=== PATIENT | female | born 1990 | race African-American/Black ===

== ENCOUNTER 2016-10-13 16:30 | Emergency (ER) | payer MEDICAID, OTHER ==
[~2016-10-13] VITALS: Ht 162.6 cm; Wt 56.7 kg
[~2016-10-13 16:30] MED LIST: CIPROFLOXACIN500 M2 ORAL; KEFLEX500 MG ORAL; METRONIDAZOLE500 MG ORAL; NAPROSYN500 M1 ORAL; NKM
[2016-10-13] MEDS ORDERED: Tylenol #3 tab (300mg/30mg) ORAL ONE (17:00)
[2016-10-13 17:18] VITALS: BP 114/52
[2016-10-13] MEDS ORDERED: IBUPROFEN600 MG ORAL (18:21)
[2016-10-13] MEDS ORDERED: ACETAMINOPHEN-1 EAC1 ORAL (18:21)
[2016-10-13 18:42] VITALS: BP 114/52
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
--- NOTE | 2016-10-14 10:27 | Diagnostic Imaging Report ---
Indication: Facial trauma and pain Technique: Continuous helical transaxial imaging of the maxillofacial structures obtained without intravenous contrast administration. Coronal 2-D reformats were also obtained. Study obtained in a Siemens sensation [address] Total Dose length Product (DLP): [address] Dose Index Volume (CTDIvol): 28 mGy Comparison: None Findings: There is no evidence of an acute fracture. Paranasal sinuses and mastoids are clear. Soft tissues are unremarkable. 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 Impression: No acute injury identified. 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 This may have implications in terms of the stability of this level. Suggest nonemergent referral to a program management specialist. The CT scanner at [facility] is accredited by the [employer] and the scans are performed using dose optimization techniques as appropriate to a performed exam including Automatic Exposure control.
== END 2016-10-13 18:35 | disposition home or self-care (01) ==
LOC: EMR 17:08
DX: S00.83XA Contusion of other part of head, initial encounter (principal); Y04.2XXA Assault by strike against or bumped into by another person, initial encounter; Y92.89 Other specified places as the place of occurrence of the external cause
CPT/HCPCS: 70486; 99284

== ENCOUNTER 2016-11-14 06:12 | Emergency (ER) | payer MEDICAID, OTHER ==
[~2016-11-14] VITALS: Ht 162.6 cm; Wt 59.0 kg
[~2016-11-14 06:12] MED LIST changes: +ACETAMINOPHEN-1 EAC1 ORAL; +IBUPROFEN600 MG ORAL
--- NOTE | 2016-11-14 06:33 | Emergency Room Report ---
History of Present Illness General Chief Complaint: Abdominal Pain Source: Patient Present Illness HPI Patient present with complaints of nausea vomiting and diarrhea Patient had gone to bed last night in the middle of the night woke up with hot sweats Had diffuse abdominal pain which was followed by diarrhea Denies any blood in the vomit or diarrhea Denies any chest pain or shortness of breath Abdominal pain is cramping /10 diffuse Patient does not recall eating any were suspicious Denies any recent travel Allergies: Coded Allergies: NO KNOWN ALLERGIES (Unverified Allergy, Unknown, 03/20/15) Patient History Past Medical History: see triage record Pertinent Family History: none Last Menstrual Period: OCT 19 Now: No Reviewed Nursing Documentation: PMH: Agreed, PSxH: Agreed Nursing Documentation-PMH Past Medical History: No Stated History Review of Systems All Other Systems: negative except mentioned in HPI Physical Exam Vital Signs Date Time Temp Pulse Resp B/P (MAP) Pulse Ox O2 Delivery O2 Flow Rate FiO2 11/14/16 06:14 97.9 76 18 122/75 98 Room Air Sp02 EP Interpretation: reviewed, normal General Appearance: mild distress - actively nauseated Head: normocephalic, atraumatic Eyes: bilateral eye PERRL, bilateral eye EOMI ENT: hearing grossly normal, normal pharynx, TMs + canals normal, uvula midline Neck: full range of motion, supple, no meningismus, no bony tend Respiratory: lungs clear, normal breath sounds, no rhonchi, no respiratory distress, no retraction, no accessory muscle use Cardiovascular #1: normal peripheral pulses, regular rate, rhythm, no edema, no gallop, no JVD, no murmur Gastrointestinal: normal bowel sounds, non tender - However subjectively uncomfortable diffusely, soft, no mass, no organomegaly, non-distended, no guarding, no hernia, no pulsatile mass, no rebound Genitourinary: no CVA tenderness Neurologic: oriented x3, responsive, brim flexer III-XII nml as tested, motor strength/ tone normal, sensory intact Psychiatric: mood/affect normal Skin: normal color, no rash, warm/dry, palpation normal Lymphatic: normal inspection, no adenopathy Medical Decision Making Diagnostic Impression: Primary Impression: Vomiting Additional Impressions: Abdominal pain Diarrhea ER Course With the patient's history and examination, multiple differentials considered, including but not limited to , ectopic , ovarian torsion, gastritis, cholecystitis, pancreatitis, appendicitis Patient's white blood for count was very minimally elevated From her discomfort CAT scan imaging was obtained the appendix itself was not visualized however no secondary signs of appendicitis clinically the patient has felt significantly better no signs of any rebound effect on evaluation Given the vomiting and diarrhea possible infectious pathology is entertained and the patient is stable for close outpatient follow Labs Test 11/14/16 06:12 White Blood Count 12.8 K/UL (4.8-10.8) Red Blood Count 4.76 M/UL (4.20-5.40) Hemoglobin 13.7 G/DL (12.0-16.0) Hematocrit 42.7 % (37.0-47.0) Mean Corpuscular Volume 90 FL (80-99) Mean Corpuscular Hemoglobin 28.8 PG (27.0-31.0) Mean Corpuscular Hemoglobin Concent 32.0 G/DL (32.0-36.0) Red Cell Distribution Width 13.8 % (11.6-14.8) Platelet Count 258 K/UL (150-450) Mean Platelet Volume 6.6 FL (6.5-10.1) Neutrophils (%) (Auto) 72.6 % (45.0-75.0) Lymphocytes (%) (Auto) 17.8 % (20.0-45.0) Monocytes (%) (Auto) 7.3 % (1.0-10.0) Eosinophils (%) (Auto) 1.1 % (0.0-3.0) Basophils (%) (Auto) 1.2 % (0.0-2.0) Urine Color Red Urine Appearance Cloudy Urine pH 5 (4.5-8.0) Urine Specific [place] 1.025 (1.005-1.035) Urine Protein 2+ (NEGATIVE) Urine Glucose (UA) Negative (NEGATIVE) Urine Ketones Negative (NEGATIVE) Urine Occult Blood 5+ (NEGATIVE) Urine Nitrite Negative (NEGATIVE) Urine Bilirubin Negative (NEGATIVE) Urine Urobilinogen 1 MG/DL (0.0-1.0) Urine Leukocyte Esterase 1+ (NEGATIVE) Urine RBC Tntc /HPF (0 - 2) Urine WBC 5-10 /HPF (0 - 2) Urine Squamous Epithelial Cells Few /LPF (NONE/OCC) Urine Bacteria Few /HPF (NONE) Urine HCG, Qualitative Negative Sodium Level 140 mEQ/L (135-145) Potassium Level 4.0 mEQ/L (3.4-4.9) Chloride Level 100 mEQ/L (98-107) Carbon Dioxide Level 27 mEQ/L (20-30) Anion Gap 13 (5-15) Blood Urea Nitrogen 15 mg/dL (7-23) Creatinine 1.0 mg/dL (0.5-0.9) Estimat Glomerular Filtration Rate > 60 mL/min (>60) Glucose Level 103 mg/dL (74-106) Calcium Level 9.3 mg/dL (8.6-10.2) Total Bilirubin 0.4 mg/dL (0.0-1.2) Aspartate Amino Transf (AST/SGOT) 15 U/L (5-40) Alanine Aminotransferase (ALT/SGPT) 7 U/L (3-33) Alkaline Phosphatase 42 U/L (35-104) Total Protein 7.3 g/dL (6.6-8.7) Albumin 4.5 g/dL (3.5-5.2) Globulin 2.8 g/dL Albumin/Globulin Ratio 1.6 (1.0-2.7) Lipase 30 U/L (< 60) CT/MRI/US Diagnostic Results CT/MRI/US Diagnostic Results : Impression CT abdomen pelvis:Impression: Small amount of free fluid in the pelvis. Tiny low-density lesion in the right lobe of liver unchanged, likely a tiny cyst. 10 is not identified. Otherwise negative. Last Vital Signs Date Time Temp Pulse Resp B/P (MAP) Pulse Ox O2 Delivery O2 Flow Rate FiO2 11/14/16 06:14 97.9 76 18 122/75 98 Room Air Status: improved Disposition: HOME, SELF-CARE Condition: Improved Scripts Famotidine (PEPCID) 20 Mg Tablet 20 MG ORAL DAILY, #7 TAB 0 Refills Prov: KP KUMAR D.O. 11/14/16 Ondansetron Odt* (ZOFRAN ODT*) 4 Mg Tab.rapdis 4 MG ORAL Q6H Y for Nausea & Vomiting, #10 TAB 0 Refills Prov: PK KUMAROLandon 11/14/16 Additional Instructions: Patient is provided with the discharge instructions notified to follow up with primary doctor in the next 2-3 days otherwise return to the er with any worsening symptoms. Please note that this report is being documented using DRAG[employer] technology. This can lead to erroneous entry secondary to incorrect interpretation by the dictating instrument. KP KUMAR D.O. Nov 14, 2016 06:33
[2016-11-14] MEDS ORDERED: Tubing IV Cassette IV ONE (06:43)
[2016-11-14] MEDS ORDERED: Morphine Sulfate 4mg/ml Inj IVP ONE (06:45)
[2016-11-14] MEDS ORDERED: Metoclopramide 10mg/2ml Inj IVP ONE (06:45)
[2016-11-14] MEDS ORDERED: DiphenhydrAMINE 50mg/ml Inj IVP ONE (06:45)
[2016-11-14 07:05] VITALS: BP 114/74
[2016-11-14 07:14] LABS: BASOPHILS % (AUTO) 1.2 % (0.0-2.0); EOSINOPHILS % (AUTO) 1.1 % (0.0-3.0); LYMPHOCYTES % (AUTO) 17.8 % (20.0-45.0); MEAN CORPUSCULAR HEMOGLOBIN 28.8 PG (27.0-31.0); MEAN CORPUSCULAR VOLUME 90 FL (80-99); MEAN PLATELET VOLUME 6.6 FL (6.5-10.1); MONOCYTES % (AUTO) 7.3 % (1.0-10.0); NEUTROPHILS % (AUTO) 72.6 % (45.0-75.0); PLATELET COUNT 258 K/UL (150-450); RED BLOOD COUNT 4.76 M/UL (4.20-5.40); RED CELL DISTRIBUTION WIDTH 13.8 % (11.6-14.8); WHITE BLOOD COUNT 12.8 K/UL (4.8-10.8)
[2016-11-14 07:22] LABS: APPEARANCE,URINE CLOUDY; KETONES,URINE NEGATIVE (NEGATIVE); LEUKOCYTE ESTERASE ,URINE 1+ (NEGATIVE); NITRITE,URINE NEGATIVE (NEGATIVE); PH,URINE 5 (4.5-8.0); PROTEIN,URINE 2+ (NEGATIVE); UROBILINOGEN,URINE 1 MG/DL (0.0-1.0)
[2016-11-14 07:24] LABS: BACTERIA,URINE FEW /HPF; RBC,URINE TNTC /HPF (0 - 2); SQUAMOUS EPITHELIAL CELL,UR FEW /LPF (NONE/OCC)
[2016-11-14 07:37] LABS: ALANINE AMINOTRANSFERASE 7 U/L (3-33); ALBUMIN/GLOBULIN RATIO 1.6 (1.0-2.7); ANION GAP 13 (5-15); ASPARTATE AMINO TRANSFERASE 15 U/L (5-40); CALCIUM 9.3 mg/dL (8.6-10.2); CARBON DIOXIDE 27 mEQ/L (20-30); CHLORIDE 100 mEQ/L (98-107); GLOMERULAR FILTRATION RATE > 60 mL/min (>60); HEMOLYSIS 2; LIPASE 30 U/L (< 60); SODIUM 140 mEQ/L (135-145); TOTAL PROTEIN 7.3 g/dL (6.6-8.7)
[2016-11-14 09:00] VITALS: BP 108/68
[2016-11-14] MEDS ORDERED: PEPCID20 MG ORAL (09:48)
[2016-11-14] MEDS ORDERED: ZOFRAN ODT4 MG ORAL (09:48)
[2016-11-14 10:00] VITALS: BP 108/68
--- NOTE | 2016-11-14 11:40 | Diagnostic Imaging Report ---
Indication: Abdominal pain Technique: CT scan of the abdomen and pelvis was performed from the diaphragms to the symphysis pubis with intravenous contrast material only per specific request of the ordering physician.. 5 mm sections were generated. Axial, coronal, and sagittal images are presented. Dose: Total Dose Length Product - DLP [address] Dose Index - CTDIvol(s) 13.24 mGy. Comparison: 11/26/2013 Findings: There is a tiny low-density lesion in the right lobe of the liver measuring 5 mm, unchanged. The liver is otherwise normal. The gallbladder is unremarkable. The spleen is normal. Pancreas is normal. Adrenal glands are unremarkable. The kidneys are normal. Aorta and inferior vena cava are normal caliber. Retroperitoneum is free of adenopathy. The appendix is not visualized. There is some free fluid in the pelvis. The uterus and ovaries are unremarkable. Bladder is normal. Impression: Small amount of free fluid in the pelvis. Tiny low-density lesion in the right lobe of liver unchanged, likely a tiny cyst. 10 is not identified. Otherwise negative. The CT scanner at [facility] is accredited by the [employer] and the scans are performed using protocols designed to limit radiation exposure to as low as reasonably achievable to attain images of sufficient resolution adequate for diagnostic evaluation.
== END 2016-11-14 10:00 | disposition home or self-care (01) ==
LOC: EMR 07:05
DX: R11.10 Vomiting, unspecified (principal); R10.9 Unspecified abdominal pain; R19.7 Diarrhea, unspecified
CPT/HCPCS: 36415; 74177; 80053; 81003; 81025; 83690; 85025; 96361; 96374; 96375; 99284; J1200; J2270; J2765; Q9967

== ENCOUNTER 2017-03-12 10:39 | Emergency (ER) | payer MEDICAID ==
[~2017-03-12] VITALS: Ht 162.6 cm; Wt 59.0 kg
[~2017-03-12 10:39] MED LIST changes: +PEPCID20 MG ORAL; +UNOBMED; +ZOFRAN ODT4 MG ORAL
[2017-03-12] MEDS ORDERED: LR 1000ml 1,000 ML IV STA ×2 (10:42→13:52)
[2017-03-12] MEDS ORDERED: Metoclopramide 10mg/2ml Inj IVP ONE (10:45)
[2017-03-12] MEDS ORDERED: LORazepam Inj 2mg/ml 1ml IV ONE (11:00)
[2017-03-12 11:11] VITALS: BP 105/77
[2017-03-12 11:11] LABS: BASOPHILS % (AUTO) 0.7 % (0.0-2.0); HEMATOCRIT 41.1 % (37.0-47.0); HEMOGLOBIN 13.2 G/DL (12.0-16.0); LYMPHOCYTES % (AUTO) 10.4 % (20.0-45.0); MEAN CORPUSCULAR VOLUME 89 FL (80-99); MONOCYTES % (AUTO) 4.4 % (1.0-10.0); NEUTROPHILS % (AUTO) 84.5 % (45.0-75.0); PLATELET COUNT 331 K/UL (150-450); RED BLOOD COUNT 4.63 M/UL (4.20-5.40); RED CELL DISTRIBUTION WIDTH 13.2 % (11.6-14.8); WHITE BLOOD COUNT 15.3 K/UL (4.8-10.8)
[2017-03-12 11:36] LABS: ANION GAP 15 mmol/L (5-15); BLOOD UREA NITROGEN 12 mg/dL (7-18); CARBON DIOXIDE 21 MMOL/L (21-32); CHLORIDE 104 MMOL/L (98-107); CREATININE 1.1 MG/DL (0.55-1.30); POTASSIUM 3.5 MMOL/L (3.5-5.1); SODIUM 140 MMOL/L (136-145)
[2017-03-12 11:41] LABS: ALANINE AMINOTRANSFERASE 11 U/L (12-78); ALBUMIN 4.4 G/DL (3.4-5.0); ALBUMIN/GLOBULIN RATIO 1.2 (1.0-2.7); ALKALINE PHOSPHATASE 50 U/L (46-116); ASPARTATE AMINO TRANSFERASE 19 U/L (15-37); BILIRUBIN,TOTAL 0.5 MG/DL (0.2-1.0)
[2017-03-12 12:24] LABS: APPEARANCE,URINE CLEAR; BILIRUBIN, URINE NEGATIVE (NEGATIVE); COLOR,URINE AMBER; GLUCOSE, URINE (UA) NEGATIVE (NEGATIVE); KETONES,URINE 3+ (NEGATIVE); LEUKOCYTE ESTERASE ,URINE 1+ (NEGATIVE); NITRITE,URINE NEGATIVE (NEGATIVE); PH,URINE 9 (4.5-8.0); PROTEIN,URINE NEGATIVE (NEGATIVE); UROBILINOGEN,URINE NORMAL MG/DL (0.0-1.0)
--- NOTE | 2017-03-12 12:47 | Emergency Room Report ---
History of Present Illness General Chief Complaint: Abdominal Pain Source: Patient, EMS Present Illness HPI 26yof brought in by [facility] for acute onset abdominal pain and vomiting Nice fever, chills, diarrhea denies sick contacts Patient denies drug use denies previous abdominal or pelvic surgery denies foreign travel Allergies: Coded Allergies: NO KNOWN ALLERGIES (Unverified Allergy, Unknown, 03/20/15) Patient History Past Medical History: none Past Surgical History: none Pertinent Family History: none Social History: Reports: smoking, drug use Last Menstrual Period: Unk Now: No Immunizations: UTD Reviewed Nursing Documentation: PMH: Agreed, PSxH: Agreed Nursing Documentation-PMH Past Medical History: No Stated History Review of Systems All Other Systems: negative except mentioned in HPI Physical Exam Vital Signs Date Time Temp Pulse Resp B/P (MAP) Pulse Ox O2 Delivery O2 Flow Rate FiO2 03/12/17 10:33 96.1 93 20 105/77 100 Room Air Sp02 EP Interpretation: reviewed, normal General Appearance: normal inspection, well appearing, alert, GCS 15, non-toxic , moderate distress, other - writhing on stretcher Head: normocephalic, atraumatic Eyes: bilateral eye PERRL, bilateral eye EOMI ENT: normal ENT inspection, hearing grossly normal, normal pharynx, no angioedema, normal voice, TMs + canals normal, uvula midline, moist mucus membranes Neck: normal inspection, full range of motion, supple, thyroid normal, no meningismus, no bony tend Respiratory: normal inspection, lungs clear, normal breath sounds, no rhonchi, no respiratory distress, no retraction, no accessory muscle use, no wheezing, speaking full sentences Cardiovascular #1: regular rate, rhythm, no edema, no JVD, normal capillary refill Gastrointestinal: normal inspection, normal bowel sounds, non tender, soft, no mass, no peritonitis, non-distended, no guarding, no hernia, no pulsatile mass, other - Actively vomiting, no peritonitis Genitourinary: no CVA tenderness Musculoskeletal: normal inspection, back normal, normal range of motion, no calf tenderness, pelvis stable, Gabe's Sign negative Neurologic: normal inspection, alert, oriented x3, responsive, rn placement III-XII nml as tested, motor strength/tone normal, cerebellar normal, normal gait, speech normal Psychiatric: normal inspection, judgement/insight normal, mood/affect normal, no suicidal/homicidal ideation, no delusions Skin: normal inspection, normal color, no rash Lymphatic: normal inspection, no adenopathy Medical Decision Making Diagnostic Impression: Primary Impression: Intractable abdominal pain Additional Impression: Marijuana abuse ER Course Patient had elevated lactate that increased from 3-9 despite treatment for nausea vomiting with anti-emetics and fluid. However her third lactate was 1 However this lactate was not complete until after CT was done CT otherwise unremarkable for acute process Patient will be discharged Severe abdominal pain and vomiting likely due to marijuana abuse ER course: Patient has remained stable during ED stay. Disposition: Patient is to be discharged to home. Prescriptions given are zofran Patient is instructed to follow up with their primary care doctor within 5 days. Strict return precautions discussed with patient such as fever, chills, worsening/severe pain, nausea, vomiting, which may indicate severe illness. Patient verbalizes understanding and agrees with plan. Please note that this Emergency Department Report was dictated using [employer] library media specialist technology software, occasionally this can lead to erroneous entry secondary to interpretation by the dictation equipment Last Vital Signs Date Time Temp Pulse Resp B/P (MAP) Pulse Ox O2 Delivery O2 Flow Rate FiO2 03/12/17 11:11 96.1 98 20 105/77 100 Room Air Status: improved Disposition: HOME, SELF-CARE NABILA LANDIN M.D. Mar 12, 2017 12:46
[2017-03-12 13:38] VITALS: BP 109/73
[2017-03-12] MEDS ORDERED: ZOFRAN ODT4 MG ORAL (14:55)
[2017-03-12 15:05] VITALS: BP 111/72
[2017-03-12 15:06] VITALS: BP 109/73
--- NOTE | 2017-03-15 13:53 | Diagnostic Imaging Report ---
Indication: Abdominal pain Technique: CT of the abdomen and pelvis utilizing automated exposure control with intravenous contrast. Venous scanning performed. CT dose: Total DLP 505 mGycm; CTDI vol 10.1 mGy Comparison: 11/14/2016 Findings: Evaluation of the bowel is limited without oral contrast. The visualized lung bases are clear. There is a stable tiny hypodensity probably a cyst in the right lobe of the liver near the dome. The adrenal glands, kidneys, spleen and pancreas are unremarkable. No CT dense gallstones are seen. The appendix appears normal. There is mild wall thickening versus under distention of the colon. There is trace fluid in the pelvic cul-de-sac. Uterus is grossly unremarkable. Bladder is grossly unremarkable. The osseous structures demonstrate no acute abnormality. The abdominal aorta is normal in caliber. Impression: Normal appendix. Mild wall thickening versus underdistention of the colon. Nonspecific colitis not excluded. Clinical correlation recommended. Trace fluid in the pelvic cul-de-sac. The CT scanner at [facility] is accredited by the [employer] and the scans are performed using protocols designed to limit radiation exposure to as low as reasonably achievable to attain images of sufficient resolution adequate for diagnostic evaluation.
== END 2017-03-12 15:15 | disposition home or self-care (01) ==
LOC: EDBD 10:39 → EMR 11:15
DX: R10.9 Unspecified abdominal pain (principal); F12.10 Cannabis abuse, uncomplicated
CPT/HCPCS: 36415; 74177; 80053; 80307; 81003; 83605; 83690; 85025; 96374; 96375; 99284; J2405; J2765; J7120; Q9967; S0028

== ENCOUNTER 2017-08-26 13:29 | Emergency (ER) | payer MEDICAID ==
[~2017-08-26] VITALS: Ht 162.6 cm; Wt 56.7 kg
[2017-08-26] MEDS ORDERED: NKM (13:43)
[2017-08-26] MEDS ORDERED: IBUPROFEN600 MG ORAL (13:59)
[2017-08-26] MEDS ORDERED: CEPHALEXIN500 MG ORAL (13:59)
--- NOTE | 2017-08-26 14:43 | Emergency Room Report ---
History of Present Illness General Chief Complaint: Pain Source: Patient Present Illness HPI Patient is a 27-year-old female who presented after increased right breast pain. Patient had recently finished a course of antibiotics. The patient been recently hospitalized at outside facility for similar type symptoms. Patient stated that she was unable to follow-up as previously scheduled. Patient states that she subsequently had been noticing having increased swelling and pain for the past few days. She denies recent trauma. Allergies: Coded Allergies: NO KNOWN ALLERGIES (Unverified Allergy, Unknown, 03/20/15) Patient History Past Medical History: see triage record Last Menstrual Period: 08/08/17 Now: No : 0 Reviewed Nursing Documentation: PMH: Agreed; PSxH: Agreed Nursing Documentation-PMH Past Medical History: No Stated History Review of Systems All Other Systems: negative except mentioned in HPI Physical Exam Vital Signs Date Time Temp Pulse Resp B/P (MAP) Pulse Ox O2 Delivery O2 Flow Rate FiO2 08/26/17 13:37 98.1 84 16 104/58 98 Room Air 98.1 General Appearance: well appearing, no apparent distress, alert, GCS 15 Head: normocephalic, atraumatic ENT: hearing grossly normal, normal voice Neck: full range of motion, supple Respiratory: no respiratory distress, speaking full sentences, other - right breast nodule and tenderness, minimal erythema Gastrointestinal: normal inspection Musculoskeletal: normal inspection, back normal, no calf tenderness Neurologic: normal gait Psychiatric: mood/affect normal Skin: no rash Medical Decision Making Diagnostic Impression: Primary Impression: Breast lesion ER Course The patient presented for breast pain. Differential diagnosis included wasn't limited to mastitis, fibroadenoma, breast cancer, among others. Patient has a benign exam and does not appear to require any further imaging or laboratory testing at this time. The patient appears to have minimal infection. Patient was noted to have what appears to be a large mass under the right nipple. Patient was advised to follow up with primary care physician for further imaging and general surgery referral. Patient is given prescription for ibuprofen as well as for Keflex. The patient states she has an appointment. Last Vital Signs Date Time Temp Pulse Resp B/P (MAP) Pulse Ox O2 Delivery O2 Flow Rate FiO2 08/26/17 14:24 98.1 08/26/17 13:37 84 16 104/58 98 Room Air Status: improved Disposition: HOME, SELF-CARE Condition: Stable Scripts Cephalexin* (KEFLEX*) 500 Mg Capsule 500 MG ORAL EVERY 6 HOURS, #28 CAP Prov: Gustabo Otero MD 08/26/17 Ibuprofen* (MOTRIN*) 600 Mg Tablet 600 MG ORAL Q8H PRN for For Pain, #30 TAB 0 Refills Prov: Gustabo Otero MD 08/26/17 Referrals: NON PHYSICIAN (PCP) Patient Instructions: Mastitis Additional Instructions: Follow up with primary care physician for general surgery referral. Gustabo Otero MD Aug 26, 2017 14:43
[2017-08-26 15:15] VITALS: BP 104/58
== END 2017-08-26 14:22 | disposition home or self-care (01) ==
LOC: EMR 14:15
DX: N63.0 Unspecified lump in unspecified breast (principal)
CPT/HCPCS: 81025; 99284

== ENCOUNTER 2019-02-05 09:33 | Emergency (ER) | payer SELFPAY ==
[~2019-02-05] VITALS: Ht 162.6 cm; Wt 59.0 kg
[~2019-02-05 09:33] MED LIST changes: +CEPHALEXIN500 MG ORAL
[2019-02-05 09:47] VITALS: BP 106/72
--- NOTE | 2019-02-05 09:47 | NUR ---
ED Nurse Note: Patient arrived to ED from home complaining of painful right breast lump. She states that it has gotten more swollen over the last week and burst while taking a shower with a small amount of drainage. She tried to get more drainage out but it was too painful, so she cam to the ED to be evaluated. Patient in no acute distress.
--- NOTE | 2019-02-05 10:55 | NUR ---
ED Nurse Note: Applied non stick dressing to right breast wound, covered with dry dressing and secured with tape.
--- NOTE | 2019-02-05 11:09 | Emergency Room Report ---
History of Present Illness General Chief Complaint: Skin Rash/Abscess Source: Patient Present Illness HPI Patient states that she has a wound on her right breast that she has had for several years. She states that this wound has been ongoing. She states she has had an ultrasound in the past. She did see her primary care physician and is planned to undergo an MRI and a repeat ultrasound. She has not had a mammogram of any sort. She presents emergency department today because the wound is painful and she is frustrated with the lack of diagnosis. She denies recent illness. She is never given or breast-fed. There is no significant change in the wound. She has no other complaints. Allergies: Coded Allergies: NO KNOWN ALLERGIES (Unverified Allergy, Unknown, 03/20/15) Patient History Past Medical History: none, see triage record Social History: Denies: smoking, alcohol use, drug use Reviewed Nursing Documentation: PMH: Agreed; PSxH: Agreed Nursing Documentation-PMH Past Medical History: No Stated History Review of Systems All Other Systems: negative except mentioned in HPI Physical Exam Vital Signs Date Time Temp Pulse Resp B/P (MAP) Pulse Ox O2 Delivery O2 Flow Rate FiO2 02/05/19 09:42 98.1 73 17 106/71 (83) 99 Room Air Sp02 EP Interpretation: reviewed, normal General Appearance: no apparent distress, alert, GCS 15, non-toxic Head: normocephalic, atraumatic ENT: hearing grossly normal, normal pharynx, no angioedema, normal voice Neck: normal inspection, full range of motion Respiratory: no respiratory distress, no retraction, no accessory muscle use, speaking full sentences Rectal: deferred Musculoskeletal: normal inspection, back normal, normal range of motion Neurologic: alert, motor strength/tone normal, oriented x3, sensory intact, responsive, speech normal Psychiatric: judgement/insight normal, memory normal, mood/affect normal, no suicidal/homicidal ideation Skin: other - R. breast: inflamed region with skin darkening at 2-3 o'clock [id number] with a palpable mass [id number] with open ulceration of the skin on the nipple. Medical Decision Making Diagnostic Impression: Primary Impression: Breast mass ER Course This patient has a long-standing chronic breast mass that is concerning for malignancy. I am concerned this patient has an intraductal carcinoma. The patient is being followed by her primary care physician and in work-up for this. I did obtain an ultrasound of the right breast and there is no evidence of abscess as this is tissue based. I impressed upon the patient the urgency that she should follow-up with a breast specialist and undergo the proper evaluation of the breast to include MRI breast, mammogram, ultrasound and biopsy /resection. I educated the patient that I am concerned she has breast cancer and that this is a malignant tumor. I do not feel that antibiotics are indicated as I feel that this is more of a malignancy. Patient states she will see her primary care physician tomorrow. She is given very close return precautions and follow-up instructions. CT/MRI/US Diagnostic Results CT/MRI/US Diagnostic Results : Imaging Test Ordered: Us breast Impression mass. See official report in electronic medical record Last Vital Signs Date Time Temp Pulse Resp B/P (MAP) Pulse Ox O2 Delivery O2 Flow Rate FiO2 02/05/19 09:47 98.1 16 106/72 100 Room Air 02/05/19 09:42 73 Disposition: HOME, SELF-CARE Condition: Stable Referrals: NON PHYSICIAN (PCP) Mitali Green DO Feb 05, 2019 11:09
[2019-02-05] MEDS ORDERED: ACETAMINOPHEN-1 EAC1 ORAL (11:11)
[2019-02-05 11:23] VITALS: BP 118/76
--- NOTE | 2019-02-05 11:23 | NUR ---
ER DISCHARGE NOTE: Patient is cleared to be discharged per ERMD, pt is aox4, on room air, with stable vital signs. pt was given dc and prescription instructions, pt was able to verbalize understanding, pt id band removed. pt is able to ambulate with steady gait. pt took all belongings.
--- NOTE | 2019-02-05 14:20 | Diagnostic Imaging Report ---
Indication: 28-year-old female Right breast pain and swelling Technique: Grayscale and duplex Doppler imaging of the right breast in the area of clinical concern performed. Comparison: None Findings: In the area of clinical concern which is at the level of the right neely, ultrasound evaluation was performed. There is notable focal skin thickening demonstrated. There is no definite mass identified. There is an incidental node within the right axilla. IMPRESSION: Nonspecific focus of skin thickening in the area of clinical concern which is at the right areola. Findings could certainly be on the basis of mastoiditis/dermatitis. If there is concern for inflammatory breast carcinoma, further evaluation is highly recommended and may include MRI, mammography and ultimately skin biopsy. Findings discussed with Dr. Green via telephone
== END 2019-02-05 11:23 | disposition home or self-care (01) ==
LOC: EMR 10:10
DX: N63.10 Unspecified lump in the right breast, unspecified quadrant (principal)
CPT/HCPCS: 99283

== ENCOUNTER 2019-06-07 17:50 | Emergency (ER) | payer OTHER ==
[~2019-06-07] VITALS: Ht 162.6 cm; Wt 59.0 kg
[2019-06-07 17:57] VITALS: BP 106/70
--- NOTE | 2019-06-07 18:01 | Emergency Room Report ---
History of Present Illness General Chief Complaint: Pain Source: Patient Present Illness HPI 28 YO Female presents to the ED c/o 12/14 in severity progressive pain, swelling and erythema to localized areas on bilateral breasts x 1 week. Pt. reports one wound is healing, and the other is draining pus. Pt. reports this intermittently has been happening to her x 1 year. She has not been evaluated for her symptoms. She denies fevers or chills. Denies breast feeding. She denies hx of CA or family hx of breast cancer. Pt. denies STI's. She denies /suspicion for and endorses that she is not sexually active with men. Pt. reports pain exacerbated upon palpation and having to wear her security vest. She denies night sweats or weight loss. She denies nipple inversion or d/c. Allergies: Coded Allergies: NO KNOWN ALLERGIES (Unverified Allergy, Unknown, 03/20/15) COVID-19 Screening Contact w/high risk pt: No Recent Travel to affected area: No Experienced COVID-19 symptoms?: No Patient History Past Medical History: see triage record Past Surgical History: none Pertinent Family History: none Now: No Reviewed Nursing Documentation: PMH: Agreed; PSxH: Agreed Nursing Documentation-PMH Past Medical History: No Stated History Review of Systems All Other Systems: negative except mentioned in HPI Physical Exam Vital Signs Date Time Temp Pulse Resp B/P (MAP) Pulse Ox O2 Delivery O2 Flow Rate FiO2 06/07/19 17:53 98.2 79 17 104/65 (78) 98 Room Air Sp02 EP Interpretation: reviewed, normal General Appearance: no apparent distress, alert, GCS 15, non-toxic Head: normocephalic, atraumatic Eyes: bilateral eye normal inspection, bilateral eye PERRL ENT: hearing grossly normal, normal voice Neck: full range of motion Respiratory: lungs clear, normal breath sounds, speaking full sentences Cardiovascular #1: regular rate, rhythm Musculoskeletal: back normal, normal range of motion, gait/station normal, non- tender Neurologic: alert, motor strength/tone normal, oriented x3, sensory intact, responsive, speech normal Psychiatric: judgement/insight normal Skin: other - 1.5 cm erythematous and warm soft tissue cellulitis with draining abscess to left breast and resolving cellulitis to the right breast- 1cm in diameter- dry flaky skin, no erythema. No blisters or vesicles. no nipple d/c. Lymphatic: no adenopathy Medical Decision Making PA Attestation Dr. Otero is my supervising Physician whom patient management has been discussed with. Diagnostic Impression: Primary Impression: Cellulitis of female breast ER Course 28 YO Female presents to the ED c/o 12/14 in severity progressive pain, swelling and erythema to localized areas on bilateral breasts x 1 week. Pt. reports one wound is healing, and the other is draining pus. Pt. reports this intermittently has been happening to her x 1 year. She has not been evaluated for her symptoms. She denies fevers or chills. Denies breast feeding. She denies hx of CA or family hx of breast cancer. Pt. denies STI's. She denies /suspicion for and endorses that she is not sexually active with men. Pt. reports pain exacerbated upon palpation and having to wear her security vest. She denies night sweats or weight loss. She denies nipple inversion or d/c. Ddx considered but are not limited to cellulitis, abscess, mastitis, shingles, malignancy just to name a few. Vital signs: are WNL, pt. is afebrile H&PE are most consistent with 1.5 cm erythematous and warm soft tissue cellulitis with draining abscess to left breast and resolving cellulitis to the right breast- 1cm in diameter- dry flaky skin, no erythema. No blisters or vesicles. no nipple d/c. ORDERS: none required at this time, the diagnosis is clinical ED INTERVENTIONS: None required at this time. DISCHARGE: At this time pt. is stable for d/c to home. Will provide printed patient care instructions, and any necessary prescriptions. Care plan and follow up instructions have been discussed with the patient prior to discharge. EKG Diagnostic Results Rhythm: NSR Last Vital Signs Date Time Temp Pulse Resp B/P (MAP) Pulse Ox O2 Delivery O2 Flow Rate FiO2 06/07/19 17:53 98.2 79 17 104/65 (78) 98 Room Air Disposition: HOME, SELF-CARE Condition: Stable Scripts Mupirocin* (MUPIROCIN*) 22 Gm Oint...g. 1 APPLIC TOPIC THREE TIMES A DAY, #2 GM Prov: Ida Parekh 06/07/19 Trimethoprim/Sulfamethoxazole (Bactrim 400-80 mg Tablet) 1 Each Tablet 1 TAB ORAL TWICE A DAY for 7 Days, #14 TAB Prov: Ida Parekh 06/07/19 Cephalexin* (KEFLEX*) 500 Mg Capsule 500 MG ORAL EVERY 12 HOURS for 7 Days, #14 CAP 0 Refills Prov: Ida Parekh 06/07/19 Patient Instructions: Mastitis, [id number] Additional Instructions: Take medications as directed. Follow up with a NAIL GALVANIZER within 3-5 days, even if your symptoms have resolved. Return sooner to ED if new symptoms occur, or current symptoms become worse. - Please note that this Emergency Department Report was dictated using [employer] operator technology software, occasionally this can lead to erroneous entry secondary to interpretation by the dictation equipment. Ida Parekh Jun 07, 2019 18:01
--- NOTE | 2019-06-07 18:02 | NUR ---
ED Nurse Note: pt walked into ED FOR C/O pain to bilateral breast with lump on her breast on and off x 1 year. yellowish discharge noted from lump to left breast. pt reports the pain is getting worse and worse.
--- NOTE | 2019-06-07 18:09 | NUR ---
ED Nurse Note: urine sample sent to lab
[2019-06-07] MEDS ORDERED: BACTRIM DOUBLE S1 E1 ORAL (18:39)
[2019-06-07] MEDS ORDERED: CEPHALEXIN500 MG ORAL (18:39)
[2019-06-07] MEDS ORDERED: MUPIROCIN22 GM TOPIC (18:39)
[2019-06-07 18:50] VITALS: BP 110/66
--- NOTE | 2019-06-07 18:50 | NUR ---
ER DISCHARGE NOTE: Patient is cleared to be discharged per ERMD, pt is aox4, on room air, with stable vital signs. pt was given dc and prescription instructions, pt was able to verbalize understanding, pt id band removed without complications. pt is able to ambulate with steady gait. pt took all belongings.
== END 2019-06-07 18:50 | disposition home or self-care (01) ==
LOC: EMR 18:05
DX: N61.0 Mastitis without abscess (principal)
CPT/HCPCS: 81025; Z7502; 99282